=== PATIENT | female | born 1970 | race Caucasian/White ===

== ENCOUNTER 2017-06-27 10:26 | Emergency (ER) | payer OTHER ==
[~2017-06-27] VITALS: Ht 162.6 cm; Wt 86.2 kg
[~2017-06-27 10:26] MED LIST: ADVAIR 250-501 EACH INH; ADVIL100 M2 PO; AMOXICILLIN 50500 M1 PO; AMOXICILLIN 50500 MG PO; ANAPROX DS550 MG PO; ASPIRIN EC81 M1 PO; AUGMENTIN 875875 MG PO; CLARITIN10 MG PO; COLACE100 MG PO; CYCLOBENZAPRINE10 MG PO; DOXYCYCLINE 10100 MG PO; EDTA; FISH OIL 1,001000 M1 PO; FLEXERIL PO; GLUCOPHAGE500 MG PO; GLYBURID-METFO1 EAC2 PO; HUMALOG100 UNIT/1; HYDROCODON-ACE1 EAC7 PO; HYDROCODON-ACE1 EACH PO; IBUPROFEN 200200 M1 PO; IBUPROFEN 400400 M2 PO; IBUPROFEN 600600 M1 PO; IBUPROFEN 800800 M1 PO; IBUPROFEN 800800 MG PO; IBUPROFEN200 M2; INDOMETHACIN 5050 M1 PO; Ibuprofen; LANTUS; LEVEMIR SQ; MECLIZINE HCL12.5 MG PO; METHOCARBAMOL500 M2 PO; MILLTRIUM SENI1 EACH PO; MUCINEX DM TABL1 TA1 PO; NAPROSYN500 MG PO; NOHOMEMEDICATIONS; NORCO 5-325 TA1 EACH PO; NORCO 7.5-3251 EACH PO; NORFLEX100 MG PO; NOVOLOG100 UNIT/1; NYSTATIN1 EA10 MC; PENICILLIN V P500 MG PO; PEPCID40 MG PO; PERCOCET 10-321 EACH PO; PERCOCET 5-3251 EACH PO; PREDNISONE 10 M10 M1 PO; REMEDY CALAZIM113 G1 TP; REMEDY CALAZIM113 GM TP; ROBAXIN 750 MG750 M1 PO; SIMVASTATIN40 MG PO; SKELAXIN 800 M800 M1 PO; SLOW RELEASE I250 MG PO; SOMA250 MG PO; TRAMADOL 50 MG50 MG PO; ULTRAM 50MG TAB50 MG PO; ULTRAM50 MG PO; VALIUM10 MG PO; VENTOLIN HFA INH8 GM IH; VERAMYST10 GM NS; VICODIN 5-5001 EACH PO; VICOPROFEN 2001 EACH PO; VITAMINC500; ZANTAC 150MG T150 M1 PO; ZPAK PO
[2017-06-27] MEDS ORDERED: LISINOPRIL10 MG PO (10:37)
[2017-06-27] MEDS ORDERED: LEVEMIR FL100 UNIT/2 SUBQ (10:37)
[2017-06-27] MEDS ORDERED: HUMALOG100 UNIT/2 SUBQ (10:37)
[2017-06-27] MEDS ORDERED: BACTRIM DS TAB1 EACH PO (10:37)
[2017-06-27 10:45] LABS: URINE BILIRUBIN NEGATIVE (Negative); URINE BLOOD NEGATIVE (Negative); URINE CLARITY CLEAR; URINE COLOR YELLOW; URINE GLUCOSE-RANDOM 3+ (Negative); URINE KETONES NEGATIVE (Negative); URINE LEUKOCYTES-REFLEX NEGATIVE (Negative); URINE NITRITE-REFLEX NEGATIVE (Negative); URINE PROTEIN NEGATIVE (Negative); URINE UROBILINOGEN 0.2 E.U./dl (0.2-1.0)
[2017-06-27 10:48] LABS: ABSOLUTE BASOPHILS 0.1 thou/uL (0.0-0.2); ABSOLUTE EOSINOPHILS 0.1 thou/uL (0.0-0.7); ABSOLUTE LYMPHOCYTES 3.4 thou/uL (0.8-5.3); ABSOLUTE MONOCYTES 0.5 thou/uL (0.0-1.2); ABSOLUTE NEUTROPHILS 6.4 thou/uL (1.6-8.1); BASOPHILS 0.8 %; EOSINOPHILS 0.8 %; HEMATOCRIT 44.9 % (37.0-47.0); HEMOGLOBIN 15.4 gm/dL (12.0-15.0); LYMPHOCYTES 32.5 %; MCH 30.7 pg (26.0-34.0); MCHC 34.2 g/dL (28.0-37.0); MCV 89.7 fL (80.0-100.0); MONOCYTES 4.5 %; MPV 8.6 fl. (7.2-11.1); NUCLEATED RBCS 0 /100WBC; PLATELET COUNT* 236 thou/uL (150-400); POLYS 61.4 %; RBC 5.01 mil/uL (4.20-5.00); WBC 10.4 thou/uL (4.0-11.0)
[2017-06-27 11:00] LABS: CALCIUM 9.2 mg/dL (8.5-10.1); CREATININE 1.1 mg/dL (0.6-1.3)
[2017-06-27 11:04] LABS: ALBUMIN 3.7 g/dL (3.4-5.0); TOTAL BILIRUBIN 0.3 mg/dL (<0.1-1.0); TOTAL PROTEIN 7.9 g/dL (6.4-8.2)
[2017-06-27] MEDS ORDERED: TRAMADOL 50 MG50 MG PO (12:07)
[2017-06-27 12:45] VITALS: BP 140/81
== END 2017-06-27 12:45 | disposition home or self-care (01) ==
LOC: M.ERS 10:26
PROVIDERS: Physician Assistant
DX: E11.65 Type 2 diabetes mellitus with hyperglycemia (principal); R51 Headache; I10 Essential (primary) hypertension; F17.210 Nicotine dependence, cigarettes, uncomplicated; Z90.89 Acquired absence of other organs; Z90.710 Acquired absence of both cervix and uterus; Z79.4 Long term (current) use of insulin

== ENCOUNTER 2017-10-26 09:01 | Emergency (ER) | payer OTHER ==
[~2017-10-26] VITALS: Ht 162.6 cm; Wt 83.9 kg
[~2017-10-26 09:01] MED LIST changes: +BACTRIM DS TAB1 EACH PO; +HUMALOG100 UNIT/2 SUBQ; +LEVEMIR FL100 UNIT/2 SUBQ; +LISINOPRIL10 MG PO
[2017-10-26] MEDS ORDERED: ULTRAM 50MG TAB50 MG PO (10:06)
[2017-10-26 10:12] VITALS: BP 134/98
== END 2017-10-26 10:14 | disposition home or self-care (01) ==
LOC: M.ERS 09:01
DX: M18.12 Unilateral primary osteoarthritis of first carpometacarpal joint, left hand (principal); I10 Essential (primary) hypertension; E11.9 Type 2 diabetes mellitus without complications; F17.210 Nicotine dependence, cigarettes, uncomplicated; Z90.710 Acquired absence of both cervix and uterus; Z79.4 Long term (current) use of insulin

== ENCOUNTER 2017-12-17 09:42 | Emergency (ER) | payer OTHER ==
[~2017-12-17] VITALS: Ht 162.6 cm; Wt 81.7 kg
[2017-12-17] MEDS ORDERED: NORCO 5-325 TA1 EACH PO (10:11)
[2017-12-17 10:17] VITALS: BP 173/100
== END 2017-12-17 10:23 | disposition home or self-care (01) ==
LOC: M.ERS 09:42
DX: S93.401A Sprain of unspecified ligament of right ankle, initial encounter (principal); W18.43XA Slipping, tripping and stumbling without falling due to stepping from one level to another, initial encounter; Y93.89 Activity, other specified; Y92.89 Other specified places as the place of occurrence of the external cause; Y99.8 Other external cause status; I10 Essential (primary) hypertension; E11.9 Type 2 diabetes mellitus without complications; Z90.710 Acquired absence of both cervix and uterus; F17.210 Nicotine dependence, cigarettes, uncomplicated

== ENCOUNTER 2018-05-09 08:21 | Emergency (ER) | payer OTHER ==
[~2018-05-09] VITALS: Ht 160 cm; Wt 82.1 kg
[2018-05-09] MEDS ORDERED: NOHOMEMEDICATIONS (08:39)
[2018-05-09] MEDS ORDERED: MOBIC15 MG PO (09:29)
[2018-05-09] MEDS ORDERED: MEDROLDOSEPACK PO (09:29)
[2018-05-09 09:42] VITALS: BP 131/95
== END 2018-05-09 09:42 | disposition home or self-care (01) ==
LOC: M.ERS 08:21
DX: M13.842 Other specified arthritis, left hand (principal); I10 Essential (primary) hypertension; E11.9 Type 2 diabetes mellitus without complications; Z90.710 Acquired absence of both cervix and uterus; F17.210 Nicotine dependence, cigarettes, uncomplicated

== ENCOUNTER 2020-06-06 10:35 | Emergency (ER) | payer OTHER ==
[~2020-06-06] VITALS: Ht 157.5 cm; Wt 72.6 kg
[~2020-06-06 10:35] MED LIST changes: +MEDROLDOSEPACK PO; +MOBIC15 MG PO
[2020-06-06] MEDS ORDERED: TRAMADOL 50 MG50 MG PO (11:28)
[2020-06-06 11:39] VITALS: BP 159/103
== END 2020-06-06 11:40 | disposition home or self-care (01) ==
LOC: M.ERS 10:35
DX: M25.532 Pain in left wrist (principal); I10 Essential (primary) hypertension; E11.9 Type 2 diabetes mellitus without complications; F17.210 Nicotine dependence, cigarettes, uncomplicated; Z90.89 Acquired absence of other organs; Z90.710 Acquired absence of both cervix and uterus